=== PATIENT | female | born 1945 | race Caucasian/White ===

== ENCOUNTER 2018-01-25 15:16 | Emergency (ER) | payer OTHER ==
[2018-01-25 16:03] LABS: #Basophils 0.1 thou/uL (0.0-0.2); #Eosinphils 0.1 thou/uL (0.0-0.7); #Lymphocytes 2.4 thou/uL (1.20-3.40); #Monocytes 0.7 thou/uL (0.11-0.59); #Neutrophils 4.6 thou/uL (1.40-6.50); %Basophils 0.9 % (0.0-1.0); %Eosinophils 0.9 % (0.0-10.0); %Lymphocytes 30.4 % (21.0-51.0); %Monocytes 8.3 % (0.0-10.0); %Neutrophils 59.5 % (42.0-75.0); Hemoglobin 14.8 g/dL (12.0-16.0); Mean Corpuscular HGB CONC 34.6 g/dL (32.0-36.0); Mean Corpuscular Hemoglobin 30.6 pg (27.0-31.0); Mean Corpuscular Volume 88.5 fL (78.0-98.0); Mean Platelet Volume 7.4 fL (7.4-10.4); Platelet Count 304 thou/uL (130-400); RBC Distribution Width 11.8 % (11.5-14.5); Red Blood Cell (RBC) Count 4.82 mill/uL (4.20-5.40); White Blood Cell (WBC) Count 7.8 thou/uL (4.8-10.8)
[2018-01-25 16:11] LABS: Prothrombin Time 13.2 SEC (12.0-14.7)
[2018-01-25 16:13] LABS: D-Dimer Test 0.35 *mcg/mL (0.27-0.43)
[2018-01-25 16:26] LABS: ALT (SGPT) 18 U/L (8-55); AST (SGOT) 17 U/L (5-34); Albumin 4.5 g/dL (3.4-4.8); Alkaline Phosphatase 73 U/L (40-150); Anion Gap 15 mmol/L (10-20); BUN (Urea Nitrogen) 12 mg/dL (9.8-20.1); Bilirubin, Total 0.5 mg/dL (0.2-1.2); Calc. Creatinine Clearance 0 mL/min (70-130); Calcium 9.2 mg/dL (7.8-10.44); Carbon Dioxide 23 mmol/L (23-31); Chloride 106 mmol/L (98-107); Estimated GFR-MDRD 78; Globulin 2.8 g/dL (2.4-3.5); Glucose 93 mg/dL (83-110); Potassium 3.6 mmol/L (3.5-5.1); Protein, Total 7.3 g/dL (6.0-8.3); Sodium 140 mmol/L (136-145)
--- NOTE | 2018-01-25 16:32 | ULT ---
VENOUS DOPPLER ULTRASOUND OF THE LEFT LOWER EXTREMITY: Date: 01/25/18 HISTORY: Left lower extremity pain. TECHNIQUE: Martin scale ultrasound with color flow and spectral Doppler imaging of the deep venous system of the l eft lower extremity was performed. FINDINGS: There is good flow, compression, and augmentation noted in the left common femoral, femoral, deep fem oral, popliteal, posterior tibial, and greater saphenous veins. IMPRESSION: No evidence of deep venous thrombosis in the left lower extremity. POS: [facility]
== END 2018-01-25 18:57 | disposition home or self-care (01) ==
LOC: ERS 15:16
DX: I80.02 Phlebitis and thrombophlebitis of superficial vessels of left lower extremity (principal); J45.909 Unspecified asthma, uncomplicated; Z86.718 Personal history of other venous thrombosis and embolism
CPT/HCPCS: 36415; 80053; 85025; 85379; 85610; 85730

== ENCOUNTER 2018-04-07 09:00 | Outpatient (CLI) | payer OTHER ==
--- NOTE | 2018-04-07 12:11 | MMO ---
BILATERAL SCREENING MAMMOGRAM: INDICATIONS: Annual exam. COMPARISON: 07/27/2015 FINDINGS: Interpretation of the examination was assisted with computer aided detection. There are scattered fibroglandular elements bilaterally. There are benign appearing calcifications bilaterally. No new suspicious mass, cluster of microcalcification, or area of architectural distortion is evident . IMPRESSION: BI-RADS Category 2-Benign. Recommend routine annual mammographic screening. POS: [facility]
== END 2018-04-07 09:01 | disposition home or self-care (01) ==
LOC: SCSMAMMO 09:00
PROVIDERS: ATTEND Internal Medicine
DX: Z12.31 Encounter for screening mammogram for malignant neoplasm of breast (principal)
CPT/HCPCS: 77067

== ENCOUNTER 2018-10-18 10:14 | Emergency (ER) | payer OTHER | END 2018-10-18 11:06 | disposition home or self-care (01) | LOC: ERS 10:14 | DX: R04.0 Epistaxis (principal); Z86.718 Personal history of other venous thrombosis and embolism | CPT/HCPCS: 99283 ==

== ENCOUNTER 2019-01-06 09:09 | Outpatient (CLI) | payer OTHER ==
--- NOTE | 2019-02-03 14:43 | RAD ---
XR Chest Pa Lat @ POB History: Dyspnea Comparison: Chest radiograph 2017 Findings: Lungs are clear. No pneumothorax or effusion. Cardiac silhouette and mediastinal contours a re within normal limits. No acute osseous abnormality. Impression: No acute intrathoracic abnormality.
== END 2019-01-06 09:10 | disposition home or self-care (01) ==
LOC: RAD 09:09
PROVIDERS: ATTEND Nurse Practitioner Family
DX: R06.09 Other forms of dyspnea (principal)
CPT/HCPCS: 71046

== ENCOUNTER 2019-04-10 14:40 | Emergency (ER) | payer OTHER ==
--- NOTE | 2019-04-10 15:24 | RAD ---
Radiograph left shoulder 3 views: DATE: 04/10/2019 HISTORY: 73-year-old female with left shoulder pain. FINDINGS: Tiny focal soft tissue calcification very close to the greater tuberosity. Moderate sized osteophyte at inferior aspect of humeral head with joint space narrowing. Mild to moderate DJD at AC joint. No subluxation, dislocation, or fracture. IMPRESSION: 1. 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 The acute manifestation of this would be calcific tendinitis. 2. Moderate osteoarthrosis of the glenohumeral joint. 3. Mild to moderate osteoarthrosis of acromioclavicular joint.
[2019-04-10] MEDS ORDERED: Ketorolac Tromethamine 30 MG/ML VIAL ONE (15:39)
== END 2019-04-10 15:55 | disposition home or self-care (01) ==
LOC: ERS 14:40
DX: M75.31 Calcific tendinitis of right shoulder (principal); J44.9 Chronic obstructive pulmonary disease, unspecified; Z86.718 Personal history of other venous thrombosis and embolism
CPT/HCPCS: 96372; J1885

== ENCOUNTER 2019-12-09 06:11 | Outpatient (CLI) | payer OTHER ==
[2019-12-09 11:28] LABS: #Basophils 0.1 thou/uL (0.0-0.2); #Eosinphils 0.4 thou/uL (0.0-0.7); #Lymphocytes 1.6 thou/uL (1.20-3.40); #Monocytes 0.6 thou/uL (0.11-0.59); #Neutrophils 3.3 thou/uL (1.40-6.50); %Basophils 0.9 % (0.0-1.0); %Lymphocytes 27.4 % (21.0-51.0); %Neutrophils 55.6 % (42.0-75.0); Hemoglobin 14.6 g/dL (12.0-16.0); Mean Corpuscular HGB CONC 32.3 g/dL (32.0-36.0); Mean Corpuscular Hemoglobin 28.8 pg (27.0-31.0); Mean Corpuscular Volume 89.2 fL (78.0-98.0); Mean Platelet Volume 8.9 fL (7.4-10.4); Platelet Count 322 thou/uL (130-400); RBC Distribution Width 12.6 % (11.5-14.5); Red Blood Cell (RBC) Count 5.07 mill/uL (4.20-5.40); White Blood Cell (WBC) Count 5.9 thou/uL (4.8-10.8)
[2019-12-09 12:02] LABS: ALT (SGPT) 20 U/L (8-55); AST (SGOT) 19 U/L (5-34); Albumin 4.4 g/dL (3.4-4.8); Alkaline Phosphatase 79 U/L (40-110); Anion Gap 12 mmol/L (10-20); BUN (Urea Nitrogen) 20 mg/dL (9.8-20.1); Bilirubin, Total 0.3 mg/dL (0.2-1.2); Calc. Creatinine Clearance 0 mL/min (70-130); Calcium 9.3 mg/dL (7.8-10.44); Carbon Dioxide 27 mmol/L (23-31); Chloride 105 mmol/L (98-107); Estimated GFR-MDRD 77; Globulin 2.8 g/dL (2.4-3.5); Glucose 109 mg/dL (83-110); Potassium 4.5 mmol/L (3.5-5.1); Protein, Total 7.2 g/dL (6.0-8.3); Sodium 139 mmol/L (136-145)
[2019-12-10 11:32] LABS: SARS-CoV-2 MS2 Positive; SARS-CoV-2 N Gene Negative; SARS-CoV-2 S Gene Negative; SARS-CoV-2 orf1ab Negative
[2019-12-13 07:59] LABS: Albumin 4.5 g/dL (3.4-4.8)
[2019-12-13 08:02] LABS: Protein, Total 7.2 g/dL (6.0-8.3)
[2019-12-13 08:04] LABS: Bilirubin, Total 0.3 mg/dL (0.2-1.2)
[2019-12-13 08:05] LABS: Hemoglobin A1c 5.7 % (4.0-6.0)
[2019-12-13 08:05] LABS: Alkaline Phosphatase 80 U/L (40-110)
[2019-12-13 08:07] LABS: ALT (SGPT) 21 U/L (8-55); AST (SGOT) 18 U/L (5-34); Bilirubin, Direct 0.1 mg/dL (0.1-0.3)
== END 2019-12-09 06:12 | disposition home or self-care (01) ==
LOC: LABBT 06:11
PROVIDERS: ATTEND Surgery
DX: Z01.812 Encounter for preprocedural laboratory examination (principal); Z11.59 Encounter for screening for other viral diseases; Z93.3 Colostomy status
CPT/HCPCS: 80053; 83036; 85025; 87635; U0003

== ENCOUNTER 2019-12-09 08:45 | Inpatient (IN) | payer OTHER ==
[2019-12-12] MEDS ORDERED: Sodium Chloride 0.9% 0 ML ONE (06:10)
[2019-12-12] MEDS ORDERED: Lidocaine 2% Jelly 5 ML TUBE ONE (06:12)
[2019-12-12] MEDS ORDERED: Fentanyl 100 MCG/2 ML VIAL ONE ×3 (06:12→10:00)
[2019-12-12] MEDS ORDERED: Fleet Enema 133 ML BOT FS SCH (06:15)
[2019-12-12] MEDS ORDERED: Midazolam HCl 2 mg/2 ml Vial ONE (06:54)
[2019-12-12] MEDS ORDERED: Dexamethasone 4 mg/ml Vial ONE (06:54)
[2019-12-12] MEDS ORDERED: Morphine 2 MG/ML SYRINGE SLOW IVP PRN (09:35)
[2019-12-12] MEDS ORDERED: Morphine 10 MG/ML VIAL SLOW IVP PRN (09:35)
[2019-12-12] MEDS ORDERED: hydrALAZINE 20 MG/ML VIAL SLOW IVP PRN (09:35)
[2019-12-12] MEDS ORDERED: Promethazine HCl 25 MG/ML VIAL IM PRN ×3 (09:35→11:04)
[2019-12-12] MEDS ORDERED: Ondansetron PF 4 MG/2 ML Vial IVP PRN ×2 (09:35→11:04)
[2019-12-12] MEDS ORDERED: Morphine 4 MG/ML VIAL SLOW IVP PRN (09:35)
[2019-12-12] MEDS ORDERED: Ondansetron HCl/PF 4 MG/2 ML Vial IVP PRN (09:38)
[2019-12-12] MEDS ORDERED: Promethazine HCl 25 MG/ML VIAL SLOW IVP PRN (09:38)
[2019-12-12] MEDS ORDERED: Ketorolac Tromethamine 30 MG/ML VIAL IVP PRN (09:38)
[2019-12-12] MEDS ORDERED: Ketorolac Tromethamine 30 MG/ML VIAL ONE (10:11)
[2019-12-12] MEDS ORDERED: diphenhydrAMINE 25 MG CAP PO PRN (11:04)
[2019-12-12] MEDS ORDERED: diphenhydrAMINE 50 MG/ML VIAL IVP PRN (11:04)
[2019-12-12] MEDS ORDERED: Zolpidem Tartrate 5 MG TAB PO PRN (11:04)
[2019-12-12] MEDS ORDERED: Naloxone HCl 0.4 mg/ml Vial IV PRN (11:04)
[2019-12-12] MEDS ORDERED: diphenhydrAMINE 50 MG/ML VIAL IM PRN (11:04)
[2019-12-12] MEDS ORDERED: fentaNYL Citrate/PF 2,000 MCG in Sodium Chloride 0.9% 60 ML IV PRN (11:04)
[2019-12-12 11:11] LABS: Hemoglobin 12.8 g/dL (12.0-16.0)
[2019-12-12] MEDS ORDERED: Communication Order-Pharmacy FS PRN (11:15)
[2019-12-12] MEDS ORDERED: Glycopyrrolate 0.2 MG/ML 5 ML SYRINGE ONE (11:20)
[2019-12-12] MEDS ORDERED: Bupivacaine HCl 0.5%/Epinephrine 1:200,000/PF 30 ml Vial ONE (11:20)
[2019-12-12] MEDS ORDERED: PHENYLEPHRINE-NS 100 MCG/ML 10 ML SYRINGE ONE (11:20)
[2019-12-12] MEDS ORDERED: PROPOFOL 200 MG/20 ML VIAL ONE (11:20)
[2019-12-12] MEDS ORDERED: Rocuronium Bromide 10 MG/ML (10ML VIAL) ONE (11:20)
[2019-12-12] MEDS ORDERED: Dexamethasone 20 MG/5 ML VIAL ONE ×2 (11:20)
[2019-12-12] MEDS ORDERED: Ondansetron PF 4 MG/2 ML Vial ONE (11:20)
--- NOTE | 2019-12-12 13:07 | OP ---
DATE OF PROCEDURE: 12/12/2019 PREOPERATIVE DIAGNOSIS: Unwanted colostomy. PROCEDURE PERFORMED: Colostomy reversal. INDICATIONS: A 74-year-old female, who in July had an emergency Shaan's procedure for perforated diverticulitis, desires removal of the colostomy. FINDINGS: 31 EEA was used. Moderate adhesions. DESCRIPTION OF PROCEDURE: After informed consent was obtained, the patient was taken to the operating room and given general endotracheal anesthesia, placed in the supine position. The colostomy was initially closed with a pursestring of 0 silk suture. Then, her abdomen and pelvis were prepped and draped in usual fashion. A low midline incision was performed, subcu divided sharply. The fascia incised with 10 blade and the abdomen was explored. A lysis of adhesions was performed. The small bowel was retracted out of the pelvis to expose 2 Prolene sutures marking the end of the sigmoid colon onto the sacrum. This distal end was dissected out and freshened up with a Contour stapler. Then, an elliptical incision was performed on the anterior abdominal wall on the left side to excise the colostomy. Subcu divided sharply using blunt and sharp dissection. The ostomy was completely brought down into the abdomen. Further lysis of adhesions was performed. This end was also freshened up. The colon divided utilizing the Contour. The mesentery divided with the LigaSure. The staple line was removed and a 31 EEA was inserted and brought out through the antimesenteric taenia. The colon was closed with another Contour load. Then, a series of dilators was used distally and the 31 EEA was inserted transanally and brought out to the midline just anterior to the staple line. This was connected to the anvil and closed. The stapler was fired. The donuts then checked. They were both complete. A Daisy slight angle clamp was placed on the colon proximally and a proctoscope inserted and the colon inflated with air under water. There was no air leak. This was then decompressed. Hemostasis was assured. The omentum placed anteriorly. The fascia in the left lower quadrant was closed with interrupted [id number] of #1 Prolene. Then, the anterior fascia was closed with running looped #1 PDS. The subcu was irrigated with pulse psychiatric tech. Gloves and gowns were changed. Hemostasis was achieved electrocautery. The skin was closed with skin favian. Sterile bandage was applied. The patient tolerated the procedure well, transferred to Recovery in good condition. Sponge and needle count verified correct x2. Job ID: [id number]
[2019-12-12] MEDS ORDERED: cefOXitin 2 GM in Sodium Chloride 0.9% 100 ML IVPB SCH (14:00)
[2019-12-12] MEDS: Ketorolac Tromethamine 30 MG/ML VIAL IVP SCH ×4 (14:52→21:17)
[2019-12-12] MEDS: Sodium Chloride 0.9% 1,000 ML IV SCH ×3 (14:52→21:33)
[2019-12-12] MEDS: cefOXitin Sodium/Dextrose,Iso 2 GM in Premix Bag 1 BAG IVPB SCH ×2 (16:08→23:02)
[2019-12-12 18:02] VITALS: BMI 24.0
[2019-12-12] MEDS: Famotidine/PF 20 mg/2ml Vial SLOW IVP SCH (21:17)
[2019-12-12] MEDS: Famotidine 20 MG TAB PO SCH (21:18)
[2019-12-13] MEDS: Ketorolac Tromethamine 30 MG/ML VIAL IVP SCH ×4 (03:36→21:39)
[2019-12-13 05:48] LABS: #Basophils 0.1 thou/uL (0.0-0.2); #Lymphocytes 1.3 thou/uL (1.20-3.40); #Monocytes 2.1 thou/uL (0.11-0.59); #Neutrophils 14.4 thou/uL (1.40-6.50); %Basophils 0.3 % (0.0-1.0); %Eosinophils 0.2 % (0.0-10.0); %Lymphocytes 7.2 % (21.0-51.0); %Monocytes 11.5 % (0.0-10.0); %Neutrophils 80.7 % (42.0-75.0); Hemoglobin 12.7 g/dL (12.0-16.0); Mean Corpuscular HGB CONC 33.2 g/dL (32.0-36.0); Mean Corpuscular Hemoglobin 29.7 pg (27.0-31.0); Mean Corpuscular Volume 89.5 fL (78.0-98.0); Mean Platelet Volume 8.6 fL (7.4-10.4); Platelet Count 304 thou/uL (130-400); RBC Distribution Width 12.8 % (11.5-14.5); Red Blood Cell (RBC) Count 4.27 mill/uL (4.20-5.40); White Blood Cell (WBC) Count 17.9 thou/uL (4.8-10.8)
[2019-12-13 06:09] LABS: Anion Gap 12 mmol/L (10-20); BUN (Urea Nitrogen) 9 mg/dL (9.8-20.1); Calc. Creatinine Clearance 69 mL/min (70-130); Calcium 7.9 mg/dL (7.8-10.44); Carbon Dioxide 23 mmol/L (23-31); Chloride 106 mmol/L (98-107); Estimated GFR-MDRD 80; Glucose 102 mg/dL (83-110); Potassium 3.7 mmol/L (3.5-5.1); Sodium 137 mmol/L (136-145)
--- NOTE | 2019-12-13 08:15 | PDOC.BPN ---
- Brief Progress Note Ms. Gusman is in bed. She states she has not been sleeping well and was not aware she was in the hospital when she woke up this morning. She is oriented to name. She is tolerating ice chips and denies bowel movements. She complains of dry mouth, hair falling out and abdominal pain. Vital Signs: Temp: 97.9 Pulse: 73 RR:18 O2:97 BP:103/59 Physical Exam: Vesicular breath sounds throughout lung b[place]. Heart has RRR with no obvious MGR.
[2019-12-13] MEDS: Famotidine/PF 20 mg/2ml Vial SLOW IVP SCH ×2 (08:44→21:38)
[2019-12-13] MEDS: Sodium Chloride 0.9% 1,000 ML IV SCH ×2 (08:45→15:38)
[2019-12-13] MEDS: Famotidine 20 MG TAB PO SCH ×2 (08:45→21:39)
[2019-12-13] MEDS: Enoxaparin Sodium 40 MG/0.4 ML SYRINGE SC SCH (08:45)
--- NOTE | 2019-12-13 09:10 | PRG ---
DATE OF SERVICE: 12/13/2019 SUBJECTIVE: The patient is reporting moderate pain. She had some nausea last night. No vomiting. Better now. Somewhat confused. OBJECTIVE: VITAL SIGNS: Her temperature is 98.5, pulse 75, blood pressure 112/67. GENERAL: Again, she is somewhat confused, but she is awake. LUNGS: Clear. HEART: Regular rate and rhythm. ABDOMEN: Distended. Incision is dry. LABORATORY DATA: Her white count is 17, H and H 12 and 38, platelet count 304. Electrolytes are fine. Urine output was fine. ASSESSMENT: Stable. PLAN: Discontinue [place]k. Ambulate. Continue ice chips. Job ID: [id number]
[2019-12-14] MEDS: Ketorolac Tromethamine 30 MG/ML VIAL IVP SCH ×6 (03:56→23:00)
[2019-12-14] MEDS: Sodium Chloride 0.9% 1,000 ML IV SCH ×3 (04:00→18:15)
--- NOTE | 2019-12-14 06:44 | PDOC.BPN ---
- Brief Progress Note Ms. Gusman is in bed. She states she had flatulence last night that relieved some of her abdominal distension. She reports no pain or discomfort. She has been able to get up to use the restroom without any problem and is tolerating ice chips well. Vital Signs: Temp: 98 Pulse: 91 RR: 16 O2:96 BP: 139/70 General: She is in bed and appears in no acute distress. She is alert and oriented x3. Abdomen: decreased distension, no pain on palpation
[2019-12-14] MEDS: Famotidine/PF 20 mg/2ml Vial SLOW IVP SCH ×2 (08:58→21:04)
[2019-12-14] MEDS: Famotidine 20 MG TAB PO SCH ×2 (08:59→21:27)
[2019-12-14] MEDS: Enoxaparin Sodium 40 MG/0.4 ML SYRINGE SC SCH (13:09)
--- NOTE | 2019-12-14 16:10 | PRG ---
DATE OF SERVICE: 12/14/2019 SUBJECTIVE: Ms. Gusman has no complaints. She has passed minimal gas, but she has no nausea. OBJECTIVE: VITAL SIGNS: She is afebrile. Vital signs are stable. ABDOMEN: Soft. She has active bowel sounds. EXTREMITIES: Her wounds are healing well. The dressings are changed. ASSESSMENT: Postop day 2, colostomy takedown. PLAN: Clear liquids. Decrease IV fluids. Job ID: [id number]
[2019-12-15] MEDS: Sodium Chloride 0.9% 1,000 ML IV SCH ×2 (06:52→10:45)
[2019-12-15] MEDS: Ketorolac Tromethamine 30 MG/ML VIAL IVP SCH ×2 (08:08→10:20)
[2019-12-15] MEDS: Famotidine 20 MG TAB PO SCH ×2 (08:09→21:14)
[2019-12-15] MEDS: Enoxaparin Sodium 40 MG/0.4 ML SYRINGE SC SCH (09:28)
[2019-12-15] MEDS: Famotidine/PF 20 mg/2ml Vial SLOW IVP SCH ×2 (09:31→21:15)
[2019-12-16] MEDS: Acetaminophen 325 MG TAB PO PRN (06:48)
[2019-12-16] MEDS ORDERED: Milk Of Magnesia 30 ML UDCUP PO SCH (09:29)
--- NOTE | 2019-12-16 09:57 | PRG ---
DATE OF SERVICE: 12/16/2019 SUBJECTIVE: Ms. Gusman has no complaints today. She is tolerating a full liquid diet. She still has some bloating. She is ambulatory. She would rather go to rehab just because she has no help at home. OBJECTIVE: VITAL SIGNS: She is afebrile. Vital signs are stable. ABDOMEN: Her abdomen is soft. Her wound is healing well. ASSESSMENT: Postop colostomy takedown. PLAN: We will give her a dose of milk of magnesium today. Rehab consult put in. Dr. North will be covering for Dr. Braswell this weekend on Ms. Gusman. Job ID: [id number]
[2019-12-16] MEDS: Famotidine/PF 20 mg/2ml Vial SLOW IVP SCH ×2 (10:11→21:01)
[2019-12-16] MEDS: Enoxaparin Sodium 40 MG/0.4 ML SYRINGE SC SCH (10:32)
[2019-12-16] MEDS: Famotidine 20 MG TAB PO SCH ×2 (10:32→20:54)
[2019-12-16] MEDS: Ibuprofen 600 MG TAB PO PRN (20:59)
[2019-12-17] MEDS: Famotidine 20 MG TAB PO SCH ×2 (09:08→21:57)
[2019-12-17] MEDS: Famotidine/PF 20 mg/2ml Vial SLOW IVP SCH (09:08)
[2019-12-17] MEDS: Enoxaparin Sodium 40 MG/0.4 ML SYRINGE SC SCH (09:08)
[2019-12-17] MEDS: Ibuprofen 600 MG TAB PO PRN ×2 (09:29→21:58)
[2019-12-17] MEDS: Sodium Chloride 0.9% 1,000 ML IV SCH ×2 (12:06→16:41)
[2019-12-17] MEDS: Acetaminophen 325 MG TAB PO PRN (12:50)
--- NOTE | 2019-12-17 19:55 | PRG ---
DATE OF SERVICE: 12/17/2019 SUBJECTIVE: Ms. Gusman is doing well after colostomy reversal. I am seeing her for Dr. Braswell and Dr. Mohr. The patient is tolerating her diet. She is passing flatus. She has not had any nausea or vomiting. OBJECTIVE: VITAL SIGNS: Temperature 97.6 degrees, pulse 64, blood pressure 138/77. LUNGS: Clear to auscultation. CARDIAC: Regular rate and rhythm. No murmur or gallop. ABDOMEN: Soft, nontender. Surgical wound looks good. She is passing flatus. She has good bowel sounds. LABORATORY DATA: No laboratories today. ASSESSMENT AND PLAN: The patient does not have any home resources and has been declined by rehab. She will be discharged home in the morning on Tylenol, ibuprofen, and Ultram. She will follow up with Dr. Braswell or Dr. Mohr in a week or 10 days postoperative for staple removal. IV fluid has been discontinued. Expect anticipate discharge home tomorrow. Job ID: [id number]
[2019-12-17] MEDS: Zolpidem Tartrate 5 MG TAB PO PRN (21:58)
[2019-12-18] MEDS: Zolpidem Tartrate 5 MG TAB PO PRN (00:01)
[2019-12-18] MEDS: Famotidine 20 MG TAB PO SCH (09:23)
[2019-12-18] MEDS: Ibuprofen 600 MG TAB PO PRN (09:23)
[2019-12-18] MEDS: Acetaminophen 500 MG TAB PO PRN (11:09)
[2019-12-18] MEDS: Enoxaparin Sodium 40 MG/0.4 ML SYRINGE SC SCH (11:14)
[2019-12-18] MEDS ORDERED: Polyethylene Glycol 3350 17 GM Packet PO SCH (14:30)
--- NOTE | 2019-12-18 15:06 | PRG ---
DATE OF SERVICE: SUBJECTIVE: Ms. Gusman is seen today for Dr. Braswell and Dr. Mohr. She has no complaints. She is tolerating her diet. OBJECTIVE: LUNGS: Clear to auscultation. CARDIAC: Regular rate and rhythm without murmur or gallop. ABDOMEN: Soft, nontender. Surgical favian in place. Wounds look good. No evidence of infection. VITAL SIGNS: Temperature 97.5 degrees, pulse 82, blood pressure 150/82. ABDOMEN: Soft. Good bowel sounds. LABORATORY DATA: None. ASSESSMENT AND PLAN: Status post 12/12/2019 colostomy reversal. The patient is tolerating her diet. However, she reports no bowel movement. Yesterday, she was ready to make plans to go home, although she was somewhat anxious that she did not have any family to help her take care of things. Today, she has become very emotional and states emphatically that she refuses to go home until she has a bowel movement because she was told by Dr. Mohr that this was I have tried to talk with her, but she is adamant, thus we will keep her overnight and plan discharge home tomorrow. Job ID: [id number]
[2019-12-19] MEDS: Zolpidem Tartrate 5 MG TAB PO PRN ×2 (00:37→21:30)
--- NOTE | 2019-12-19 08:04 | PDOC.GSPN ---
Surgery Progress Note: Obj - Vital signs Vital signs: Vital Signs - Most Recent Temp Pulse Resp BP Pulse Ox 98.6 F 72 16 136/76 93 L 12/19/19 07:11 12/19/19 07:11 12/19/19 07:11 12/19/19 07:11 12/19/19 07:11 Surgery Progress Note: Results - Labs Result Diagrams: 12/13/19 04:59 12/13/19 04:59 Surgery Progress Note: A/P - Problem (1) Colostomy dysfunction Current Visit: Yes Code(s): K94.03 - COLOSTOMY MALFUNCTION Status: Acute
[2019-12-19] MEDS: Enoxaparin Sodium 40 MG/0.4 ML SYRINGE SC SCH (08:05)
[2019-12-19] MEDS: Polyethylene Glycol 3350 17 GM Packet PO SCH (08:05)
[2019-12-19] MEDS: Acetaminophen 500 MG TAB PO PRN ×3 (08:05→21:29)
[2019-12-19] MEDS: Ibuprofen 600 MG TAB PO PRN ×3 (08:05→21:28)
--- NOTE | 2019-12-19 08:46 | PDOC.GSPN ---
Surgery Progress Note: Subj - Subjective Patient reports: had a bowel movement (last night), positive flatus, tolerating a regular diet Narrative: Ms. Gusman is doing well after her colostomy reversal and the incisions are healing with mild tenderness. New onset pain this morning at both incision sites that increases with movement. Pain is described as a throbbing, sharp pressure. She is tolerating food and reports no nausea or vomit. Surgery Progress Note: Obj - Vital signs Vital signs: Vital Signs - Most Recent Temp Pulse Resp BP Pulse Ox 98.6 F 72 16 136/76 93 L 12/19/19 07:11 12/19/19 07:11 12/19/19 07:11 12/19/19 07:11 12/19/19 07:11 - Physical Exam General: no distress Cardiovascular: regular rate and rhythm Respiratory: clear to auscultation Abdomen: positive bowel sounds, appropriately tender Psychiatric: oriented to time, oriented to person, oriented to place Wound: healing well (minimal erythema, mild tenderness) Surgery Progress Note: Results - Labs Result Diagrams: 12/19/19 10:21 12/19/19 10:21 Surgery Progress Note: A/P - Problem (1) Colostomy dysfunction Current Visit: Yes Code(s): K94.03 - COLOSTOMY MALFUNCTION Status: Acute - Plan Plan: Status post 12/12/2019 colostomy reversal. The patient is tolerating her diet, had a bowel movement last night, and passed gas this morning. She is ready to make plans to go home, but she is anxious because she does not have family to help her at home. She reports new onset pain at the incision sites. Plan to discharge home today with Tylenol and ibuprofen for pain control. Addendum - Physician - Physician Attestation Date/Time: 12/19/19 1780 I personally performed or re-performed the physical examination and medical decision making. I have verified all student documentation or findings, including history, physical exam and/or medical decision making. Agree, doing well. Moderately bloated on exam but having bm's and passing flatus. DC home tomorrow
[2019-12-19 10:41] LABS: #Basophils 0.1 thou/uL (0.0-0.2); #Eosinphils 0.7 thou/uL (0.0-0.7); #Lymphocytes 1.5 thou/uL (1.20-3.40); #Neutrophils 5.4 thou/uL (1.40-6.50); %Basophils 0.7 % (0.0-1.0); %Eosinophils 8.2 % (0.0-10.0); %Monocytes 11.7 % (0.0-10.0); %Neutrophils 62.4 % (42.0-75.0); Hemoglobin 12.6 g/dL (12.0-16.0); Mean Corpuscular Hemoglobin 29.3 pg (27.0-31.0); Mean Corpuscular Volume 88.9 fL (78.0-98.0); Mean Platelet Volume 7.3 fL (7.4-10.4); Platelet Count 355 thou/uL (130-400); RBC Distribution Width 12.5 % (11.5-14.5); Red Blood Cell (RBC) Count 4.29 mill/uL (4.20-5.40); White Blood Cell (WBC) Count 8.7 thou/uL (4.8-10.8)
[2019-12-19 10:58] LABS: Anion Gap 11 mmol/L (10-20); BUN (Urea Nitrogen) 9 mg/dL (9.8-20.1); Calc. Creatinine Clearance 67 mL/min (70-130); Calcium 8.2 mg/dL (7.8-10.44); Carbon Dioxide 30 mmol/L (23-31); Chloride 103 mmol/L (98-107); Estimated GFR-MDRD 78; Glucose 129 mg/dL (83-110); Potassium 3.1 mmol/L (3.5-5.1); Sodium 141 mmol/L (136-145)
[2019-12-20] MEDS: Polyethylene Glycol 3350 17 GM Packet PO SCH (08:56)
[2019-12-20] MEDS: Enoxaparin Sodium 40 MG/0.4 ML SYRINGE SC SCH (08:56)
[2019-12-20] MEDS ORDERED: Milk Of Magnesia 30 ML UDCUP PO PRN (09:20)
--- NOTE | 2019-12-20 09:51 | DIS ---
DATE OF ADMISSION: 12/12/2019 DATE OF DISCHARGE: 12/20/2019 ADMITTING DIAGNOSIS: Colostomy dysfunction. DISCHARGE DIAGNOSIS: Colostomy dysfunction. PROCEDURE: Colostomy takedown by Dr. Braswell without complication. CONDITION ON DISCHARGE: Improved. STAFF: Mustapha Braswell MD HOSPITAL COURSE: The patient's postop course was uneventful. Her ileus slowly resolved. She was slowly advanced to regular diet. On the day of discharge, she has some bloating, but she is tolerating the GI soft diet without difficulty. She is discharged home. Prescriptions for tramadol, Zofran sent to [facility] on [address]. She will return next week for staple removal. Job ID: [id number]
[2019-12-20 10:36] VITALS: BP 111/69; TEMP 98.3
[2019-12-20] MEDS: Acetaminophen 500 MG TAB PO PRN (11:35)
== END 2019-12-20 17:44 | disposition home or self-care (01) | DRG 330 ==
LOC: SURG A 12-12 05:47
PROVIDERS: ADMIT Surgery; ATTEND Surgery
PROC: 0DBN0ZZ Excision of Sigmoid Colon, Open Approach (ICD-10-PCS; principal; 2019-12-12)
DX: K94.03 Colostomy malfunction (principal); K56.7 Ileus, unspecified; Y83.8 Other surgical procedures as the cause of abnormal reaction of the patient, or of later complication, without mention of misadventure at the time of the procedure; E78.5 Hyperlipidemia, unspecified; J43.9 Emphysema, unspecified; F17.210 Nicotine dependence, cigarettes, uncomplicated; F32.9 Major depressive disorder, single episode, unspecified; Z88.5 Allergy status to narcotic agent
CPT/HCPCS: 36415; 36416; 80048; 80053; 80076; 83036; 85014; 85018; 85025; 87635; 88307; 88341; 88342; 93005; 93010; J0670; J0694; J1100; J1200; J1650; J1885; J2250; J2405; J2704; J3010; J3490; J7620; Q0163; S0028; U0003

== ENCOUNTER 2019-12-25 11:31 | Emergency (ER) | payer OTHER ==
[2019-12-25 12:30] LABS: #Basophils 0.1 thou/uL (0.0-0.2); #Eosinphils 0.1 thou/uL (0.0-0.7); #Lymphocytes 1.7 thou/uL (1.20-3.40); #Neutrophils 8.1 thou/uL (1.40-6.50); %Basophils 0.6 % (0.0-1.0); %Eosinophils 1.1 % (0.0-10.0); %Lymphocytes 15.7 % (21.0-51.0); %Monocytes 9.2 % (0.0-10.0); %Neutrophils 73.5 % (42.0-75.0); Mean Corpuscular HGB CONC 33.2 g/dL (32.0-36.0); Mean Corpuscular Hemoglobin 29.3 pg (27.0-31.0); Mean Corpuscular Volume 88.2 fL (78.0-98.0); Platelet Count 413 thou/uL (130-400); RBC Distribution Width 12.2 % (11.5-14.5); Red Blood Cell (RBC) Count 4.43 mill/uL (4.20-5.40)
[2019-12-25 12:38] LABS: ALT (SGPT) 19 U/L (8-55); AST (SGOT) 15 U/L (5-34); Albumin 3.9 g/dL (3.4-4.8); Alkaline Phosphatase 84 U/L (40-110); Anion Gap 13 mmol/L (10-20); BUN (Urea Nitrogen) 12 mg/dL (9.8-20.1); Bilirubin, Total 0.3 mg/dL (0.2-1.2); Calc. Creatinine Clearance 0 mL/min (70-130); Carbon Dioxide 26 mmol/L (23-31); Chloride 100 mmol/L (98-107); Estimated GFR-MDRD 73; Globulin 3.1 g/dL (2.4-3.5); Glucose 138 mg/dL (83-110); Sodium 135 mmol/L (136-145)
[2019-12-25 13:14] LABS: Bacteria/HPF None Seen HPF (None Seen); Bilirubin Negative (Negative); Blood, Urine Trace (Negative); Clarity Clear (Clear); Glucose, Urine (Dipstick) Normal (Negative); Ketone, Urine Negative (Negative); Leukocyte Negative Leu/uL (Negative); Nitrite Negative (Negative); Protein, Urine (Dipstick) Negative (Neg-Trace); RBC/HPF 0-3 HPF (0-3); Specific Gravity, Urine 1.007 (1.002-1.036); Squamous Epithelial None Seen HPF (0-3); Urobilinogen Normal mg/dL (Less than 2); WBC/HPF 0-3 HPF (0-3); pH, Urine 6.5 (5.0-9.0)
[2019-12-25] MEDS ORDERED: Acetaminophen 325 MG TAB ONE (13:31)
== END 2019-12-25 13:53 | disposition home or self-care (01) ==
LOC: ERS 11:31
DX: G89.18 Other acute postprocedural pain (principal); R10.32 Left lower quadrant pain; Z48.01 Encounter for change or removal of surgical wound dressing; J44.9 Chronic obstructive pulmonary disease, unspecified; Z86.718 Personal history of other venous thrombosis and embolism; Z87.891 Personal history of nicotine dependence
CPT/HCPCS: 36415; 80053; 81003; 81015; 85025

== ENCOUNTER 2020-01-17 14:25 | Outpatient (CLI) | payer OTHER ==
--- NOTE | 2020-01-17 14:59 | RAD ---
TWO VIEWS OF THE ABDOMEN: 01/17/20 COMPARISON: None. HISTORY: Abdominal pain. FINDINGS: Upright imaging demonstrates no free intraperitoneal air. The bowel gas pattern appears nonobstructed . There is a suture line overlying the pelvis just to the left of midline. IMPRESSION: No evidence for small bowel obstruction or free intraperitoneal air. POS: [facility]
== END 2020-01-17 14:26 | disposition home or self-care (01) ==
LOC: RAD 14:25
PROVIDERS: ATTEND Surgery
DX: R10.9 Unspecified abdominal pain (principal)
CPT/HCPCS: 74019

== ENCOUNTER 2020-02-20 07:52 | Outpatient (CLI) | payer OTHER ==
[2020-02-20 16:16] LABS: #Eosinphils 0.2 thou/uL (0.0-0.7); #Lymphocytes 2.2 thou/uL (1.20-3.40); #Monocytes 0.9 thou/uL (0.11-0.59); #Neutrophils 6.5 thou/uL (1.40-6.50); %Basophils 0.4 % (0.0-1.0); %Eosinophils 1.7 % (0.0-10.0); %Lymphocytes 22.1 % (21.0-51.0); %Monocytes 9.1 % (0.0-10.0); %Neutrophils 66.7 % (42.0-75.0); Hemoglobin 12.7 g/dL (12.0-16.0); Mean Corpuscular HGB CONC 33.5 g/dL (32.0-36.0); Mean Corpuscular Hemoglobin 29.7 pg (27.0-31.0); Mean Corpuscular Volume 88.6 fL (78.0-98.0); Mean Platelet Volume 8.7 fL (7.4-10.4); Platelet Count 338 thou/uL (130-400); RBC Distribution Width 12.6 % (11.5-14.5); Red Blood Cell (RBC) Count 4.27 mill/uL (4.20-5.40); White Blood Cell (WBC) Count 9.8 thou/uL (4.8-10.8)
[2020-02-20 16:24] LABS: ALT (SGPT) 17 U/L (8-55); AST (SGOT) 18 U/L (5-34); Albumin 4.2 g/dL (3.4-4.8); Alkaline Phosphatase 74 U/L (40-110); Anion Gap 15 mmol/L (10-20); BUN (Urea Nitrogen) 18 mg/dL (9.8-20.1); Bilirubin, Total 0.3 mg/dL (0.2-1.2); Calc. Creatinine Clearance 0 mL/min (70-130); Calcium 8.9 mg/dL (7.8-10.44); Carbon Dioxide 22 mmol/L (23-31); Chloride 105 mmol/L (98-107); Estimated GFR-MDRD 78; Globulin 2.3 g/dL (2.4-3.5); Glucose 99 mg/dL (83-110); Potassium 4.2 mmol/L (3.5-5.1); Protein, Total 6.5 g/dL (6.0-8.3); Sodium 138 mmol/L (136-145)
[2020-02-21 12:26] LABS: SARS-CoV-2 MS2 Positive; SARS-CoV-2 N Gene Negative; SARS-CoV-2 S Gene Negative; SARS-CoV-2 by NAA Not Detected (NotDetected); SARS-CoV-2 orf1ab Negative
== END 2020-02-20 07:53 | disposition home or self-care (01) ==
LOC: LABBT 07:52
PROVIDERS: ATTEND Surgery
DX: Z01.818 Encounter for other preprocedural examination (principal); Z20.828 Contact with and (suspected) exposure to other viral communicable diseases; K43.2 Incisional hernia without obstruction or gangrene
CPT/HCPCS: 80053; 85025; 87635; 93005; 93010; U0003

== ENCOUNTER 2020-02-23 09:14 | Observation (INO) | payer OTHER ==
[2020-02-20 16:28] VITALS: BMI 24.0
[2020-02-23] MEDS ORDERED: EPHEDRINE 25 MG/5 ML SYRINGE ONE (10:52)
[2020-02-23] MEDS ORDERED: Dexamethasone 20 MG/5 ML VIAL ONE (10:52)
[2020-02-23] MEDS ORDERED: Lidocaine 1% PF 5 ML VIAL ONE (10:52)
[2020-02-23] MEDS ORDERED: PROPOFOL 200 MG/20 ML VIAL ONE (10:52)
[2020-02-23] MEDS ORDERED: Rocuronium Bromide 10 MG/ML (10ML VIAL) ONE (10:52)
[2020-02-23] MEDS ORDERED: Ondansetron PF 4 MG/2 ML Vial ONE ×2 (10:52→14:01)
[2020-02-23] MEDS ORDERED: Glycopyrrolate 0.2 MG/ML 5 ML SYRINGE ONE (10:52)
[2020-02-23] MEDS ORDERED: Fentanyl 100 MCG/2 ML VIAL ONE ×4 (11:16→13:18)
[2020-02-23] MEDS ORDERED: Lidocaine 1% w/Epinephrine 1:100K 20 ML VIAL ONE (11:58)
[2020-02-23] MEDS ORDERED: Bupivacaine 0.25% HCL 30 ML VIAL ONE (11:58)
[2020-02-23] MEDS ORDERED: Dextrose 50% Abboject 50 ML SYRINGE SLOW IVP PRN (12:27)
[2020-02-23] MEDS ORDERED: Morphine 2 MG/ML VIAL SLOW IVP PRN (12:27)
[2020-02-23] MEDS ORDERED: Promethazine HCl 25 MG/ML VIAL IM PRN ×2 (12:27→12:33)
[2020-02-23] MEDS ORDERED: Morphine 4 MG/ML VIAL SLOW IVP PRN (12:27)
[2020-02-23] MEDS ORDERED: Dextrose 5% in Water 1,000 ML IV PRN (12:27)
[2020-02-23] MEDS ORDERED: hydrALAZINE 20 MG/ML VIAL SLOW IVP PRN (12:27)
[2020-02-23] MEDS ORDERED: Ondansetron PF 4 MG/2 ML Vial IVP PRN (12:27)
[2020-02-23] MEDS ORDERED: Promethazine HCl 25 MG/ML VIAL SLOW IVP PRN (12:33)
[2020-02-23] MEDS ORDERED: Ondansetron HCl/PF 4 MG/2 ML Vial IVP PRN (12:33)
[2020-02-23] MEDS ORDERED: D5 1/2 NS w/20 mEq KCL 1,000 ML ONE (13:07)
[2020-02-23] MEDS: Ketorolac Tromethamine 30 MG/ML VIAL IVP SCH ×2 (17:12→23:25)
[2020-02-23] MEDS: cefOXitin Sodium/Dextrose,Iso 2 GM in Premix Bag 1 BAG IVPB SCH (19:06)
[2020-02-23] MEDS: Famotidine/PF 20 mg/2ml Vial SLOW IVP SCH (19:39)
[2020-02-23] MEDS: Famotidine 20 MG TAB PO SCH (20:31)
[2020-02-23] MEDS: D5 1/2 NS w/20 mEq KCL 1,000 ML IV SCH ×2 (20:33→23:26)
[2020-02-24] MEDS: cefOXitin Sodium/Dextrose,Iso 2 GM in Premix Bag 1 BAG IVPB SCH ×2 (02:43→11:02)
[2020-02-24] MEDS: Ketorolac Tromethamine 30 MG/ML VIAL IVP SCH ×2 (05:11→11:02)
[2020-02-24 05:27] LABS: #Basophils 0.1 thou/uL (0.0-0.2); #Eosinphils 0.1 thou/uL (0.0-0.7); #Monocytes 1.3 thou/uL (0.11-0.59); #Neutrophils 9.1 thou/uL (1.40-6.50); %Basophils 0.4 % (0.0-1.0); %Lymphocytes 15.5 % (21.0-51.0); %Monocytes 10.2 % (0.0-10.0); %Neutrophils 72.8 % (42.0-75.0); Hemoglobin 13.5 g/dL (12.0-16.0); Mean Corpuscular HGB CONC 32.1 g/dL (32.0-36.0); Mean Corpuscular Hemoglobin 29.7 pg (27.0-31.0); Mean Corpuscular Volume 92.3 fL (78.0-98.0); Mean Platelet Volume 7.9 fL (7.4-10.4); Platelet Count 326 thou/uL (130-400); RBC Distribution Width 12.7 % (11.5-14.5); Red Blood Cell (RBC) Count 4.55 mill/uL (4.20-5.40); White Blood Cell (WBC) Count 12.5 thou/uL (4.8-10.8)
[2020-02-24 05:46] LABS: Anion Gap 13 mmol/L (10-20); BUN (Urea Nitrogen) 7 mg/dL (9.8-20.1); Calc. Creatinine Clearance 59 mL/min (70-130); Calcium 8.2 mg/dL (7.8-10.44); Carbon Dioxide 23 mmol/L (23-31); Chloride 106 mmol/L (98-107); Estimated GFR-MDRD 67; Glucose 119 mg/dL (83-110); Potassium 3.9 mmol/L (3.5-5.1); Sodium 138 mmol/L (136-145)
[2020-02-24] MEDS: D5 1/2 NS w/20 mEq KCL 1,000 ML IV SCH ×2 (08:25→11:47)
[2020-02-24] MEDS: Famotidine 20 MG TAB PO SCH (08:25)
[2020-02-24] MEDS: Famotidine/PF 20 mg/2ml Vial SLOW IVP SCH (08:26)
[2020-02-24] MEDS ORDERED: Enoxaparin Sodium 30 MG/0.3 ML SYRINGE SC SCH (09:00)
[2020-02-24] MEDS ORDERED: traMADol HCl 50 MG TAB PO PRN ×2 (09:35)
--- NOTE | 2020-02-24 10:08 | PRG ---
DATE OF SERVICE: 02/24/2020 SUBJECTIVE: The patient is somewhat confused. She has a difficult social situation. She has dementia. She lives by herself. She has some friends, but no family to help her to be taken care of. She has been asking for referral to rehab or residential or else. Social Service is working on that. She says her pain is okay. No nausea or vomiting. She is tolerating diet. OBJECTIVE: VITAL SIGNS: On exam, temperature is 97.8, pulse 61, blood pressure 110/62. GENERAL: She is awake, alert, somewhat confused. LUNGS: Clear. ABDOMEN: Soft and nondistended. The incision looks good. The dressing is dry. LABORATORY DATA: Her white count is 12, hemoglobin and hematocrit of 13 and 42, platelet count 326. Her electrolytes are fine. ASSESSMENT: Dementia with inadequate support at home. PLAN: I have consulted Case Management and [employer]orkelling In[employer]. They are going to ask their director for help. Hopefully, we can try and get her a residential placement. Job ID: [id number]
--- NOTE | 2020-02-24 11:01 | OP ---
DATE OF PROCEDURE: 02/23/2020 PREOPERATIVE DIAGNOSIS: Incisional ventral hernia. PROCEDURE PERFORMED: Open ventral hernia repair with mesh. INDICATION: 74-year-old female who had a colostomy closure, developed a bulge at the lateral aspect of the colostomy closure site that was causing pain. FINDINGS: 2.5 cm defect, 8 cm mesh used. DESCRIPTION OF PROCEDURE: After informed consent was obtained, the patient was taken to the operating room and given general mask anesthesia, placed in supine position. Abdomen was prepped and draped in usual fashion. Local anesthesia was infiltrated subcutaneously and deep, and a transverse incision was performed through the old scar. Subcu was divided sharply. The hernia sac was dissected out and removed. The defect was measured at 2.5 cm. An 8 cm Proceed mesh was inserted intra-abdominally, pulled up and sutured to the abdominal wall with interrupted 0 Ethibond. Then, hemostasis was assured. Subcutaneous tissue was closed with interrupted 3-0 Vicryl. Skin was closed with a running subcuticular 4-0 Rapide. Steri-Strips applied. Sterile bandage was applied. The patient tolerated the procedure well, transferred to Recovery in good condition. Sponge and needle count verified correct x2. Job ID: [id number]
[2020-02-24] MEDS ORDERED: Bisacodyl 10 MG SUPP PR SCH (13:30)
[2020-02-24 16:17] VITALS: BP 147/80; TEMP 98.4
--- NOTE | 2020-02-25 15:10 | DIS ---
DATE OF ADMISSION: 02/23/2020 DATE OF DISCHARGE: 02/24/2020 DISCHARGE DIAGNOSES: Incisional ventral hernia postop pain, cognitive dysfunction. PROCEDURES DURING ADMISSION: Open ventral hernia repair with mesh. HOSPITAL COURSE: The patient was admitted, taken to the operating room where she underwent an open ventral hernia repair with mesh. Postoperatively, she had a lot of pain in the recovery room, so she was kept overnight for observation. She also exhibited some dementia symptoms.. Her friends and herself had asked for referral for long-term care. She was not eligible. We were able to schedule home health to help with her daily life. She is discharged to home on tramadol and Zofran. She will follow up with me in 2 weeks. Job ID: [id number]
== END 2020-02-24 17:30 | disposition home or self-care (01) ==
LOC: SDC 09:14 → SURG A 14:17
PROVIDERS: ADMIT Surgery; ATTEND Surgery
PROC: 0WUF0JZ Supplement Abdominal Wall with Synthetic Substitute, Open Approach (ICD-10-PCS; principal; 2020-02-23)
DX: K43.2 Incisional hernia without obstruction or gangrene (principal); F03.90 Unspecified dementia, unspecified severity, without behavioral disturbance, psychotic disturbance, mood disturbance, and anxiety; E78.00 Pure hypercholesterolemia, unspecified; F32.9 Major depressive disorder, single episode, unspecified; J45.909 Unspecified asthma, uncomplicated; M19.90 Unspecified osteoarthritis, unspecified site; Z79.899 Other long term (current) drug therapy; Z88.5 Allergy status to narcotic agent
CPT/HCPCS: 36415; 80048; 85025; 96361; 96365; 96372; 96375; 96376; C1781; G0378; J0690; J0694; J1100; J1650; J1885; J2270; J2405; J2704; J3010; J3480; S0020; S0028

== ENCOUNTER 2020-04-05 10:01 | Outpatient (CLI) | payer OTHER, SELFPAY ==
--- NOTE | 2020-04-05 12:35 | RAD ---
RADIOGRAPH ABDOMEN 2 VIEWS: DATE: 04/05/2020 HISTORY: 74-year-old female with abdominal pain and constipation FINDINGS: There is no evidence of pneumoperitoneum. There is no evidence of dilated small bowel loops. There are no differential air/fluid levels. Small to moderate amount stool in the right colon. IMPRESSION: no evidence of bowel obstruction.
== END 2020-04-05 10:02 | disposition home or self-care (01) ==
LOC: BICRAD 10:01
PROVIDERS: ATTEND Physician Assistant Medical
DX: K59.00 Constipation, unspecified (principal)
CPT/HCPCS: 74018

== ENCOUNTER 2020-05-04 16:16 | Emergency (ER) | payer OTHER, SELFPAY ==
[~2020-05-04 16:16] MED LIST: Iopamidol 370 76% 50 ML VIAL FS ONE; Iopamidol-370 76% 500 ML 1 ML ONE
[2020-05-04 17:52] LABS: #Basophils 0.1 thou/uL (0.0-0.2); #Eosinphils 0.2 thou/uL (0.0-0.7); #Lymphocytes 2.5 thou/uL (1.20-3.40); #Monocytes 1.3 thou/uL (0.11-0.59); #Neutrophils 5.8 thou/uL (1.40-6.50); %Basophils 0.8 % (0.0-1.0); %Lymphocytes 25.1 % (21.0-51.0); %Monocytes 12.8 % (0.0-10.0); %Neutrophils 59.4 % (42.0-75.0); Hemoglobin 13.5 g/dL (12.0-16.0); Mean Corpuscular HGB CONC 33.7 g/dL (32.0-36.0); Mean Corpuscular Hemoglobin 29.9 pg (27.0-31.0); Mean Corpuscular Volume 88.8 fL (78.0-98.0); Platelet Count 306 thou/uL (130-400); RBC Distribution Width 11.8 % (11.5-14.5); Red Blood Cell (RBC) Count 4.52 mill/uL (4.20-5.40); White Blood Cell (WBC) Count 9.8 thou/uL (4.8-10.8)
[2020-05-04 18:16] LABS: ALT (SGPT) 16 U/L (8-55); AST (SGOT) 31 U/L (5-34); Alkaline Phosphatase 73 U/L (40-110); Anion Gap 14 mmol/L (10-20); BUN (Urea Nitrogen) 14 mg/dL (9.8-20.1); Bilirubin, Total 0.3 mg/dL (0.2-1.2); Calc. Creatinine Clearance 0 mL/min (70-130); Calcium 8.8 mg/dL (7.8-10.44); Carbon Dioxide 25 mmol/L (23-31); Chloride 104 mmol/L (98-107); Estimated GFR-MDRD 71; Globulin 3.4 g/dL (2.4-3.5); Glucose 95 mg/dL (83-110); Potassium 4.2 mmol/L (3.5-5.1); Protein, Total 7.4 g/dL (6.0-8.3); Sodium 139 mmol/L (136-145)
[2020-05-04 18:19] LABS: Bacteria/HPF None Seen HPF (None Seen); Bilirubin Negative (Negative); Blood, Urine 1+ (Negative); Clarity Clear (Clear); Glucose, Urine (Dipstick) Normal (Negative); Ketone, Urine Negative (Negative); Leukocyte Negative Leu/uL (Negative); Nitrite Negative (Negative); Protein, Urine (Dipstick) Negative (Neg-Trace); RBC/HPF 0-3 HPF (0-3); Specific Gravity, Urine 1.013 (1.002-1.036); Squamous Epithelial None Seen HPF (0-3); Urobilinogen Normal mg/dL (Less than 2); WBC/HPF 0-3 HPF (0-3)
--- NOTE | 2020-05-04 19:51 | CT ---
CT Abdomen Pelvis W Con: 05/04/2020 7:25 PM CLINICAL INFORMATION: Multiple prior colon surgery. Increasing abdominal distention COMPARISON: KUB 04/05/2020 TECHNIQUE: Multiple contiguous axial images were obtained and a CT of the abdomen and pelvis with IV contrast. Oral contrast was administered. Coronal and sagittal reformats were performed. FINDINGS: Lower Chest: within normal limits. Abdomen: Liver: within normal limits. Bile Ducts: Normal caliber. Gallbladder: No calcified gallstones. Normal caliber wall. Pancreas: within normal limits. Spleen: within normal limits. Adrenals: 1.4 cm left adrenal nodule. Kidneys: A subcentimeter hypodensity in the right kidney is too small to definitely characterize but likely represents a cyst. Pelvis: Reproductive Organs: No pelvic masses. A 1.9 cm hypodensity along the left pelvic sidewall likely rep resents patient's left ovary. Ureters: within normal limits. Bladder: within normal limits. Peritoneum: No ascites or free air, no fluid collection. Bowel: Normal caliber. Mild stool retention in the transverse colon and right colon. Mesentery and Retroperitoneum: No enlarged mesenteric or retroperitoneal lymph nodes. Vessels: Atherosclerotic calcifications. Abdominal Wall: 2.6 cm fat-containing umbilical hernia Bones: Degenerative changes in the spine and hips. IMPRESSION: 1. Mild stool retention in the colon without evidence of obstruction. 2. Left adrenal nodule. A three-phase abdominal CT per adrenal mass protocol is recommended for more complete evaluation. 3. Likely right renal cyst.
== END 2020-05-04 20:19 | disposition home or self-care (01) ==
LOC: ERS 16:16
DX: K42.9 Umbilical hernia without obstruction or gangrene (principal); E27.8 Other specified disorders of adrenal gland; J43.9 Emphysema, unspecified; Z87.891 Personal history of nicotine dependence
CPT/HCPCS: 36415; 74177; 80053; 81003; 81015; 85025; Q9967

== ENCOUNTER 2020-06-19 07:51 | Outpatient (CLI) | payer MEDICARE ==
--- NOTE | 2020-06-19 09:43 | CT ---
CT ABDOMEN AND PELVIS WITHOUT IV CONTRAST: Oral contrast was administered. INDICATION: Abdominal pain. COMPARISON: Comparison is made to recent CT abdomen and pelvis with IV and oral contrast performed 05/04/2020. FINDINGS: Lung bases clear. Liver, spleen, and pancreas unremarkable. Stomach and duodenum unremarkable. Prominence of the left adrenal gland suggesting small adrenal nodule is again seen, unchanged. Kidneys are unremarkable. Low-density lesion in the right renal cortex better defined on the prior p ost contrast exam is again noted, probably representing a small cortical cyst. Small bowel loops normal caliber. The small bowel loops are opacified. Mural thickening and nondistention seen involving the upper left colon and the splenic flexure region . Focal colitis cannot be excluded and consider colonoscopy if clinically indicated. Large volume stool in the right colon and in the sigmoid rectum. Aorta is normal caliber. No free fluid or adenopathy. Uterus and adnexa unremarkable. Osseous structures unremarkable. IMPRESSION: 1. Mural thickening with nondistention involving the splenic flexure and upper left colon. Correlat e clinically and recommend colonoscopy as indicated. 2. Otherwise, no acute process or interval change from the recent exam. POS: [facility]
== END 2020-06-19 07:52 | disposition home or self-care (01) ==
LOC: BICCT 07:51
PROVIDERS: ATTEND Physician Assistant Medical
DX: K59.00 Constipation, unspecified (principal); R10.32 Left lower quadrant pain; K63.89 Other specified diseases of intestine
CPT/HCPCS: 74176

== ENCOUNTER 2020-11-23 12:41 | Emergency (ER) | payer MEDICARE ==
[2020-11-23 14:11] LABS: #Lymphocytes 1.8 thou/uL (1.20-3.40); #Monocytes 0.9 thou/uL (0.11-0.59); #Neutrophils 7.2 thou/uL (1.40-6.50); %Basophils 0.5 % (0.0-1.0); %Eosinophils 0.3 % (0.0-10.0); %Monocytes 8.8 % (0.0-10.0); %Neutrophils 72.5 % (42.0-75.0); Hemoglobin 14.8 g/dL (12.0-16.0); Mean Corpuscular HGB CONC 33.3 g/dL (32.0-36.0); Mean Corpuscular Volume 90.2 fL (78.0-98.0); Mean Platelet Volume 7.8 fL (7.4-10.4); Platelet Count 322 thou/uL (130-400); RBC Distribution Width 12.2 % (11.5-14.5); Red Blood Cell (RBC) Count 4.94 mill/uL (4.20-5.40); White Blood Cell (WBC) Count 9.9 thou/uL (4.8-10.8)
[2020-11-23 14:40] LABS: ALT (SGPT) 24 U/L (8-55); AST (SGOT) 23 U/L (5-34); Albumin 4.6 g/dL (3.4-4.8); Alkaline Phosphatase 82 U/L (40-110); Anion Gap 17 mmol/L (10-20); BUN (Urea Nitrogen) 14 mg/dL (9.8-20.1); Bilirubin, Total 0.6 mg/dL (0.2-1.2); Calc. Creatinine Clearance 0 mL/min (70-130); Calcium 9.3 mg/dL (7.8-10.44); Carbon Dioxide 23 mmol/L (23-31); Chloride 105 mmol/L (98-107); Globulin 2.7 g/dL (2.4-3.5); Glucose 92 mg/dL (83-110); Potassium 3.7 mmol/L (3.5-5.1); Protein, Total 7.3 g/dL (5.8-8.1); Sodium 141 mmol/L (136-145)
[2020-11-23 15:36] LABS: Bacteria/HPF None Seen HPF (None Seen); Bilirubin Negative (Negative); Blood, Urine 1+ (Negative); Clarity Clear (Clear); Glucose, Urine (Dipstick) Normal (Negative); Ketone, Urine Trace mg/dL (Negative); Leukocyte Negative Leu/uL (Negative); Nitrite Negative (Negative); Protein, Urine (Dipstick) Negative (Neg-Trace); RBC/HPF 0-3 HPF (0-3); Specific Gravity, Urine 1.008 (1.002-1.036); Squamous Epithelial None Seen HPF (0-3); Urobilinogen Normal mg/dL (Less than 2); WBC/HPF None Seen HPF (0-3)
== END 2020-11-23 15:41 | disposition home or self-care (01) ==
LOC: ERS 12:41
DX: R51.9 Headache, unspecified (principal); J44.9 Chronic obstructive pulmonary disease, unspecified; J45.909 Unspecified asthma, uncomplicated; Z87.891 Personal history of nicotine dependence
CPT/HCPCS: 36415; 70450; 80053; 81003; 81015; 84484; 85025; 93005